=== PATIENT | male | born 1985 | race Caucasian/White ===

== ENCOUNTER 2022-10-24 05:29 | Emergency (ER) | payer MEDICAID, OTHER ==
[~2022-10-24] VITALS: Ht 154.9 cm; Wt 63.0 kg
[~2022-10-24 05:29] MED LIST: CARBAMAZEPINE
[2022-10-24 05:40] VITALS: BP 118/82
[2022-10-24] MEDS ORDERED: OXYMETAZOLINE HCL NASAL SPRAY 15ML BOTHNSTRLS STA (05:51)
[2022-10-24] MEDS ORDERED: CETI10CA2 PO (06:06)
[2022-10-24] MEDS ORDERED: FLUT9.9S BOTHNSTRLS (06:06)
== END 2022-10-24 06:30 | disposition home or self-care (01) ==
LOC: ER 05:29
DX: R09.81 Nasal congestion (principal)
CPT/HCPCS: 99282